=== PATIENT | female | born 1990 | race Caucasian/White ===

== ENCOUNTER → 2018-03-24 11:26 | Outpatient (CLI) | payer OTHER, SELFPAY ==
[2018-03-24 12:03] LABS: Add Manual Diff / Slide Review NO; Basophils Percent Auto 0.6 % (0-2); Eosinophils Percent Auto 0.7 % (2-4); Hematocrit 41.5 % (36-46); Hemoglobin 13.8 g/dL (12.0-16.0); Lymphocytes Percent Auto 37.3 % (25-40); Mean Corpuscular HGB Conc 33.2 % (30-36); Mean Corpuscular Volume 87.2 fL (80-100); Monocytes Percent Auto 6.6 % (3-14); Neutrophils Absolute Auto 3200 /uL (3000-5900); Neutrophils Percent Auto 54.8 % (50-75); Platelet Count 278 X10^3/uL (150-400); Red Blood Cell Count 4.75 X10^6/uL (4.0-5.2); Red Cell Distribution Width 13.5 % (11.6-14.8); White Blood Cell Count 5.8 X10^3/uL (4.5-11.0)
[2018-03-24 12:08] LABS: Appearance Urine UA CLEAR; Bilirubin Urine UA NEGATIVE (NEGATIVE); Color Urine UA YELLOW; Glucose Urine UA NEGATIVE (Normal); Ketones Urine UA NEGATIVE (NEGATIVE); Leukocyte Esterase Urine UA NEGATIVE (NEGATIVE); Nitrite Urine UA NEGATIVE (Negative); Occult Blood Urine UA NEGATIVE (Negative); Protein Urine UA NEGATIVE (Negative); Urobilinogen Urine UA 0.2 E.U./dL (0.2); pH Urine UA 6.5 (4.5-8.0)
[2018-03-24 15:17] LABS: Hepatitis B Surface Antigen NEGATIVE s/c (NEGATIVE)
[2018-03-24 15:35] LABS: HIV 1 and 2 Antibody NEGATIVE (NEGATIVE); Hep C Virus Ab w/Reflex Quant NEGATIVE s/c (NEGATIVE)
[2018-03-25 14:53] LABS: HSV 2 IGG AB 5.99 index (< 0.90); HSV1IGG < 0.90 index (< 0.90)
[2018-03-26 15:42] LABS: RPR Screen Nonreactive (Nonreactive)
== END ==
PROVIDERS: PCP Family Medicine; Visit Provider Family Medicine
DX: Z34.81 Encounter for supervision of other normal pregnancy, first trimester (principal); Z3A.01 Less than 8 weeks gestation of pregnancy
CPT/HCPCS: 36415; 80055; 81003; 86695; 86696; 86703; 86787; 86803; 86850; 86900; 86901; 87086

== ENCOUNTER → 2018-06-10 15:37 | Outpatient (CLI) | payer OTHER, SELFPAY ==
[2018-06-15 15:00] LABS: AFP, Serum 39.5 ng/mL; Calc Gestational Age 18.1; Cigarette Smoker N; Donated Egg NOT GIVEN; Donor Egg Age NOT GIVEN; Estriol, Free 1.44 ng/mL; Inhibin A, Dimeric 150 pg/mL; Maternal Weight 174 lbs; Number of Fetuses 1; Previous Pregnancy Down Syndro NOT GIVEN; hCG, MoM 0.88; hCG, Serum 19.2 IU/mL
== END ==
PROVIDERS: PCP Family Medicine; Visit Provider Family Medicine
DX: Z34.82 Encounter for supervision of other normal pregnancy, second trimester (principal); Z3A.17 17 weeks gestation of pregnancy
CPT/HCPCS: 82105; 82677; 84702; 86336

== ENCOUNTER → 2018-06-24 12:50 | Outpatient (CLI) | payer OTHER, SELFPAY ==
--- NOTE | 2018-06-24 | DI.US.S_ITS ---
PROCEDURE: US OB >= 14 WEEKS FETUS INDICATIONS: ANATOMY SCAN OUTSIDE/PRIOR DATING DATA: Last menstrual period (LMP): 02/03/18. LMP-based estimated date of delivery (SHIRA): 11/10/18. First dating scan (date and location): This study, 06/24/18. Estimated date of delivery (SHIRA) from first dating scan: 11/06/18. TECHNIQUE: Real-time scanning was performed of the fetus, with image documentation and biometric measurements. Endovaginal scanning: Not needed for this study. COMPARISON: None. FINDINGS: General: A single living intrauterine gestation is present. Presentation: Breech at this time. Placenta: Placenta is identified, without previa. Amniotic fluid index: 16.6 cm, normal range is 5-24 cm. heart rate: 139 beats per minute. Maternal cervical canal: 3.8 cm long. Normal lower limit is 2.5 cm. biometrics: Biparietal diameter: 4.8 cm, 20 weeks 3 days Head circumference: 17.8 cm, 20 weeks 2 days Abdominal circumference: 16.7 cm, 21 weeks 5 days Femur length: 3.3 cm, 20 weeks 3 days Estimated gestational age from initial scan: 20 weeks 1 day Composite gestational age from present scan: 20 weeks 5 days Estimated weight and percentile: 392 g, at the upper 89th percentile for current gestational age Measurement variability for biometric dating: +/- 7 days from 14 weeks to 15 weeks 6 days gestation, +/- 10 days from 16 weeks to 21 weeks 6 days gestation, +/- 2 weeks from 22 weeks to 27 weeks 6 days gestation, +/- 3 weeks for 28 weeks gestation or later. weight reference: 4500 g or EFW >90/95% is considered macrosomia or large for gestational age. EFW <10% is small for gestational age. EFW 5% or less is considered intra-uterine growth restriction. Anatomic survey: Neuro: Ventricles are non-dilated at less than 10 mm. Cisterna magna is normal at 3-11 mm. Cerebellum is normal in size and morphology. Nuchal skin fold: Normal at less than 6 mm between 14-21 weeks gestational age. Face: Nose and lips, facial profile are normal. Spine: No evidence for spina bifida. Heart: 4-chambered heart is present, with normal ventricular outflow tracts. Diaphragm: Diaphragm is intact. Stomach: Left-sided stomach is present. Kidneys: No hydronephrosis. Normal is less than 5 mm in 2nd trimester, less than 7 mm in 3rd trimester. Cord: 3-vessel cord has orthotopic insertion. Bladder: Normal in size. Extremities: All 4 extremities identified. IMPRESSION: Current estimated gestational age is 20 weeks 5 days and the gestational age from LMP is 21 weeks 1 day. There has been appropriate interval growth. Current weight is at the upper 89th percentile, however, and followup OB ultrasound in approximately 2 weeks is recommended to establish presence or absence of macrosomia. No anomaly seen. Dictated by: Paulo Mcdowell M.D. on 06/24/2018 at 15:55 Approved by: Paulo Mcdowell M.D. on 06/24/2018 at 15:59
== END ==
PROVIDERS: PCP Family Medicine; Visit Provider Family Medicine
DX: Z36.89 Encounter for other specified antenatal screening (principal); Z3A.20 20 weeks gestation of pregnancy
CPT/HCPCS: 76811

== ENCOUNTER → 2018-07-13 14:44 | Outpatient (CLI) | payer OTHER, SELFPAY ==
--- NOTE | 2018-07-13 14:46 | DI.US.S_ITS ---
PROCEDURE: US OB FOLLOW UP INDICATIONS: GROWTH MONITORING OUTSIDE/PRIOR DATING DATA: Last menstrual period (LMP): 02/03/18. LMP-based estimated date of delivery (SHIRA): 11/10/18. First dating scan (date and location): 06/24/18. Estimated date of delivery (SHIRA) from first dating scan: 11/06/18. TECHNIQUE: Real-time scanning was performed of the fetus, with image documentation and biometric measurements. Endovaginal scanning: Not needed for this study COMPARISON: [facility], OB >= 14 WEEKS FETUS, 06/24/2018, 12:59. [facility], OB <= 14 WEEKS FETUS, 04/08/2018, 15:37. FINDINGS: General: A single living intrauterine gestation is present. Presentation: Breech. Placenta: Placental position is posterior, without previa. Amniotic fluid index: 17.5 cm, normal range is 5-24 cm. heart rate: 152 beats per minute. Maternal cervical canal: 4.6 cm long. Normal lower limit is 2.5 cm. biometrics: Biparietal diameter: 5.6 cm, 23 weeks 1 day Head circumference: 21.1 cm, 23 weeks 1 day Abdominal circumference: 19.3 cm, 24 weeks 0 days Femur length: 3.9 cm, 22 weeks 3 days Estimated gestational age from initial scan: 23 weeks 3 days Composite gestational age from present scan: 23 weeks 1 day Estimated weight and percentile: 581 g, 36th percentile Measurement variability for biometric dating: +/- 7 days from 14 weeks to 15 weeks 6 days gestation, +/- 10 days from 16 weeks to 21 weeks 6 days gestation, +/- 2 weeks from 22 weeks to 27 weeks 6 days gestation, +/- 3 weeks for 28 weeks gestation or later. weight reference: 4500 g or EFW >90/95% is considered macrosomia or large for gestational age. EFW <10% is small for gestational age. EFW 5% or less is considered intra-uterine growth restriction. Other: Not applicable. IMPRESSION: Appropriate interval growth, delivery date is projected to be centered on 11/06/18. Dictated by: Paulo Mcdowell M.D. on 07/13/2018 at 17:17 Approved by: Paulo Mcdowell M.D. on 07/13/2018 at 17:20
== END ==
PROVIDERS: PCP Family Medicine; Visit Provider Family Medicine
DX: Z34.92 Encounter for supervision of normal pregnancy, unspecified, second trimester (principal); Z3A.23 23 weeks gestation of pregnancy
CPT/HCPCS: 76816

== ENCOUNTER → 2018-08-11 15:32 | Outpatient (CLI) | payer OTHER, SELFPAY ==
[2018-08-11 17:32] LABS: Add Manual Diff / Slide Review NO; Basophils Absolute Auto 0 /uL (0-100); Basophils Percent Auto 0.5 % (0-2); Eosinophils Absolute Auto 0 /uL (0-450); Eosinophils Percent Auto 0.6 % (2-4); Hematocrit 36.7 % (36-46); Hemoglobin 12.5 g/dL (12.0-16.0); Lymphocytes Absolute Auto 1300 /uL (1100-4500); Lymphocytes Percent Auto 16.8 % (25-40); Mean Corpuscular Hemoglobin 30.4 PG (26-34); Mean Corpuscular Volume 89.6 fL (80-100); Monocytes Absolute Auto 600 /uL (0-900); Monocytes Percent Auto 7.9 % (3-14); Neutrophils Absolute Auto 5800 /uL (1500-7000); Neutrophils Percent Auto 74.2 % (50-75); Platelet Count 224 X10^3/uL (150-400); Red Cell Distribution Width 13.8 % (11.6-14.8); White Blood Cell Count 7.8 X10^3/uL (4.5-11.0)
[2018-08-11 18:05] LABS: GTT (PREG) 1 Hour PP 50gm Dose 96 mg/dL (76-139)
== END ==
PROVIDERS: PCP Family Medicine; Visit Provider Family Medicine
DX: Z34.82 Encounter for supervision of other normal pregnancy, second trimester (principal)
CPT/HCPCS: 36415; 82950; 85025

== ENCOUNTER 2018-09-22 12:29 | Outpatient (CLI) | payer OTHER, SELFPAY ==
--- NOTE | 2018-09-22 13:03 | PM.OBTRLD ---
Visit Information Visit Information Date of evaluation: 09/22/18 Primary OB Provider: Magalie Owusu On-call OB Provider: Milagros Gross Reason for Evaluation: Yes pre-term labor [facility] Medical History (Updated 09/22/18 @ 13:04 by Milagros Gross MD) Acne (Chronic) Asthma (Resolved) Chicken pox (Resolved) Seizure (Resolved) Surgical History (Updated 04/07/18 @ 20:15 by Danna Kendrick) History of lumpectomy (~2009) Social History Smoking Status: Never smoker Social History Smoking Status: Never smoker Review of Systems Review of Systems Patient c/o low abdominal pain and uterine tightening as well as low back pain. no leakage of fluid. Good movement. No vaginal bleeding. no change in vaginal discharge. All systems reviewed & are unremarkable except as noted in HPI and below Exam Narrative Exam Narrative: Patient's abdomen is soft, nontender. no CVA tenderness. cervix is long, closed, thick and high. Evaluation Evaluation Baseline heart rate: 150 Variability: Moderate (11-25) monitor accelerations: Present monitor decelerations: Absent Contraction Frequency (minutes): 0 Category of Tracing: I Cervical dilation (cm): 0 Cervical effacement (%): 0 station: -4 Diagnosis, Plan/Disposition Final Diagnosis (1) 33 weeks gestation of : Current Visit: No Status: Acute (2) Premature uterine contractions causing threatened premature labor in third trimester: Current Visit: No Status: Acute Plan/Disposition Plan: Patient is reassured she is to drink fluids and rest. If her symptoms worsen she is to return otherwise keep her normal visits. OB Disposition: home
--- NOTE | 2018-09-22 13:06 | P.TNLD_ITS ---
Visit Information Visit Information Date of evaluation: 09/22/18 Primary OB Provider: Magalie Owusu On-call OB Provider: Milagros Gross Reason for Evaluation: Yes pre-term labor [facility] Medical History (Updated 09/22/18 @ 13:04 by Milagros Gross MD) Acne (Chronic) Asthma (Resolved) Chicken pox (Resolved) Seizure (Resolved) Surgical History (Updated 04/07/18 @ 20:15 by Danna Kendrick) History of lumpectomy (~2009) Social History Smoking Status: Never smoker Social History Smoking Status: Never smoker Review of Systems Review of Systems Patient c/o low abdominal pain and uterine tightening as well as low back pain. no leakage of fluid. Good movement. No vaginal bleeding. no change in vaginal discharge. All systems reviewed & are unremarkable except as noted in HPI and below Exam Narrative Exam Narrative: Patient's abdomen is soft, nontender. no CVA tenderness. cervix is long, closed, thick and high. Evaluation Evaluation Baseline heart rate: 150 Variability: Moderate (11-25) monitor accelerations: Present monitor decelerations: Absent Contraction Frequency (minutes): 0 Category of Tracing: I Cervical dilation (cm): 0 Cervical effacement (%): 0 station: -4 Diagnosis, Plan/Disposition Final Diagnosis (1) 33 weeks gestation of : Current Visit: No Status: Acute (2) Premature uterine contractions causing threatened premature labor in third trimester: Current Visit: No Status: Acute Plan/Disposition Plan: Patient is reassured she is to drink fluids and rest. If her symptoms worsen she is to return otherwise keep her normal visits. OB Disposition: home
== END 2018-09-22 13:10 | disposition home or self-care (01) ==
LOC: OB 09-23 13:04
PROVIDERS: PCP Family Medicine; Visit Provider Family Medicine
DX: O47.03 False labor before 37 completed weeks of gestation, third trimester (principal); Z3A.33 33 weeks gestation of pregnancy
CPT/HCPCS: 59025; G0378; G0379

== ENCOUNTER → 2018-10-14 13:49 | Outpatient (CLI) | payer OTHER, SELFPAY ==
[2018-10-15 13:41] LABS: Strep Grp B PCR NEG for Grp B Strep
== END ==
PROVIDERS: PCP Family Medicine; Visit Provider Family Medicine
DX: Z3A.33 33 weeks gestation of pregnancy (principal)
CPT/HCPCS: 87653

== ENCOUNTER 2018-11-15 09:58 | Outpatient (CLI) | payer OTHER, SELFPAY ==
--- NOTE | 2018-11-15 10:40 | PM.OBTRLD ---
Visit Information Visit Information Date of evaluation: 11/15/18 Primary OB Provider: Magalie Owusu Reason for Evaluation: Yes non-stress test non-stress test reason: other (post-dates) [facility] Medical History (Updated 11/15/18 @ 11:07 by Magalie Owusu MD) Acne (Chronic) Asthma (Resolved) Chicken pox (Resolved) Seizure (Resolved) Surgical History (Updated 04/07/18 @ 20:15 by Danna Kendrick) History of lumpectomy (~2009) Social History Smoking Status: Never smoker Social History Smoking Status: Never smoker Evaluation Evaluation Baseline heart rate: 120 Variability: Moderate (11-25) monitor accelerations: Present monitor decelerations: Absent Category of Tracing: I Cervical dilation (cm): 2 Cervical effacement (%): 75 station: -1 Diagnosis, Plan/Disposition Final Diagnosis (1) Post-dates : Current Visit: Yes Status: Acute Plan/Disposition Plan: Membranes stripped today. Reactive NST. IOL scheduled for 11/16 OB Disposition: home
== END 2018-11-15 11:00 | disposition home or self-care (01) ==
LOC: LABOR 10:56 → OB 14:36
PROVIDERS: PCP Family Medicine; Visit Provider Family Medicine
DX: O48.0 Post-term pregnancy (principal); Z3A.40 40 weeks gestation of pregnancy
CPT/HCPCS: 59025; G0378; G0379

== ENCOUNTER 2018-11-16 20:33 | Inpatient (IN) | payer OTHER, SELFPAY ==
[2018-11-17] MEDS: DINOPROSTONE VAG (CERVIDIL) 10 MG VAG (01:06)
[2018-11-17 01:10] VITALS: BP 105/63
[2018-11-17 01:14] LABS: Add Manual Diff / Slide Review NO; Basophils Absolute Auto 100 /uL (0-100); Basophils Percent Auto 0.5 % (0-2); Eosinophils Absolute Auto 100 /uL (0-450); Eosinophils Percent Auto 0.8 % (2-4); Hematocrit 38.5 % (36-46); Hemoglobin 13.2 g/dL (12.0-16.0); Lymphocytes Absolute Auto 3400 /uL (1100-4500); Lymphocytes Percent Auto 34.5 % (25-40); Mean Corpuscular HGB Conc 34.2 % (30-36); Mean Corpuscular Hemoglobin 30.8 PG (26-34); Mean Corpuscular Volume 89.9 fL (80-100); Monocytes Absolute Auto 500 /uL (0-900); Monocytes Percent Auto 5.6 % (3-14); Neutrophils Absolute Auto 5700 /uL (1500-7000); Neutrophils Percent Auto 58.6 % (50-75); Platelet Count 234 X10^3/uL (150-400); Red Blood Cell Count 4.28 X10^6/uL (4.0-5.2); Red Cell Distribution Width 13.9 % (11.6-14.8); White Blood Cell Count 9.7 X10^3/uL (4.5-11.0)
--- NOTE | 2018-11-17 08:17 | PM.OBHP.1 ---
OB HPI Date/Time Date of admission: 11/16/18 Date Patient Seen: 11/17/18 Time Patient Seen: 08:00 History of Present Condition Chief complaint: observation of labor : 2 Para: 1 Estimated Date of Delivery: 11/10/18 Estimated Gestational Age (weeks): 41w0d Narrative: Barbara Cisneros is a 28 year old at 41w0d who presented for post-dates IOL. The pt has been feeling mild intermittent cramping at home, but no regular painful contractions. She denies any LOF or vaginal bleeding. She is feeling baby move regularly. 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 Preadmission Labs Blood type: A (+) positive -: Antibody screen: negative, GBS status: negative, HBsAG: negative, HIV: negative, HSV 1: negative, HSV 2: positive and RPR/VDLR: negative -: Rubella: immune and Varicella: immune HCT: 36.7 HCAB: negative Quad screen: Normal 1 hr GTT: 96 Prior (ies) History: 07/26/15 - at 40w5d, [id number] Evaluation Evaluation Baseline heart rate: 130 Variability: Moderate (11-25) monitor accelerations: Present monitor decelerations: Absent Uterine Contraction Intensity: Mild Category of Tracing: I Cervical dilation (cm): 2 Cervical effacement (%): 80 station: 0 Laboratory results: Laboratory Tests 11/17/18 11/17/18 00:47 00:47 WBC 9.7 RBC 4.28 Hgb 13.2 Hct 38.5 MCV 89.9 MCH 30.8 MCHC 34.2 RDW 13.9 Plt Count 234 Neut % (Auto) 58.6 Lymph % (Auto) 34.5 [place] % (Auto) 5.6 Eos % (Auto) 0.8 L Baso % (Auto) 0.5 Neut # (Auto) 5700 Lymph # (Auto) 3400 [place] # (Auto) 500 Eos # (Auto) 100 Baso # (Auto) 100 Blood Type A Positive Antibody Screen Negative [facility] Medical History (Updated 11/15/18 @ 11:07 by Magalie Owusu MD) Acne (Chronic) Asthma (Resolved) Chicken pox (Resolved) Seizure (Resolved) Surgical History (Updated 04/07/18 @ 20:15 by Danna Kendrick) History of lumpectomy (~2009) Social History Smoking Status: Never smoker Social History Smoking Status: Never smoker Meds Home Medications Medication Instructions Recorded Confirmed Type cetirizine 10 mg tablet 10 mg PO DAILY 08/19/18 11/17/18 History 1 tab PO DAILY 08/19/18 11/17/18 History vitamin,calcium,mqzgmyup-irgx-imexj acid tablet acyclovir 400 mg tablet 400 mg PO TID #120 tab 10/14/18 11/17/18 Rx Allergies Allergy/AdvReac Type Severity Reaction Status Date / Time dexamethasone Allergy Mild RAPID HR, Verified 11/17/18 03:56 RASH, NAUSEA, DIZZINESS pertussis vaccine,adsorbed AdvReac Unknown CHILDHOOD Verified 11/17/18 03:56 Exam Vital Signs (past 8 hours): - 11/17/18 01:10 Blood Pressure 105/63 Narrative Exam Narrative: Gen: NAD, laying comfortably in bed, appears well CV: RRR, no murmurs Resp: clear to auscultation bilaterally Abd: soft, nontender, nondistended, gravid Ext: trace edema Objective Labs Result Diagrams: 11/17/18 00:47 Labs: Laboratory Results - last 24 hr 11/17/18 11/17/18 00:47 00:47 WBC 9.7 RBC 4.28 Hgb 13.2 Hct 38.5 MCV 89.9 MCH 30.8 MCHC 34.2 RDW 13.9 Plt Count 234 Neut % (Auto) 58.6 Lymph % (Auto) 34.5 [place] % (Auto) 5.6 Eos % (Auto) 0.8 L Baso % (Auto) 0.5 Neut # (Auto) 5700 Lymph # (Auto) 3400 [place] # (Auto) 500 Eos # (Auto) 100 Baso # (Auto) 100 Blood Type A Positive Antibody Screen Negative Assessment and Plan Assessment and Plan Assessment and Plan narrative: 28yo at 41w0d who presented for post-dates IOL. No complications with . HSV positive, on acyclovir prophylaxis. Received cervidil overnight without any significant increase in contraction intensity after initial 2-3 hours, more tapering off. Bishops score favorable at 9. GBS negative, Rh positive. - Expectant management, anticipate - GBS negative, no antibiotic prophylaxis indicated - FHT reassuring - Epidural for pain control when pt desires - Cervidil removed, will start pitocin due to favorable bishops score and no significant contractions on cervidil. Titrate as tolerated. - Plan for AROM once pt having regular painful contractions
--- NOTE | 2018-11-17 08:20 | P.HPOB_ITS ---
OB HPI Date/Time Date of admission: 11/16/18 Date Patient Seen: 11/17/18 Time Patient Seen: 08:00 History of Present Condition Chief complaint: observation of labor : 2 Para: 1 Estimated Date of Delivery: 11/10/18 Estimated Gestational Age (weeks): 41w0d Narrative: Barbara Cisneros is a 28 year old at 41w0d who presented for post-dates IOL. The pt has been feeling mild intermittent cramping at home, but no regular painful contractions. She denies any LOF or vaginal bleeding. She is feeling baby move regularly. 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 Preadmission Labs Blood type: A (+) positive -: Antibody screen: negative, GBS status: negative, HBsAG: negative, HIV: negative, HSV 1: negative, HSV 2: positive and RPR/VDLR: negative -: Rubella: immune and Varicella: immune HCT: 36.7 HCAB: negative Quad screen: Normal 1 hr GTT: 96 Prior (ies) History: 07/26/15 - at 40w5d, [id number] Evaluation Evaluation Baseline heart rate: 130 Variability: Moderate (11-25) monitor accelerations: Present monitor decelerations: Absent Uterine Contraction Intensity: Mild Category of Tracing: I Cervical dilation (cm): 2 Cervical effacement (%): 80 station: 0 Laboratory results: Laboratory Tests 11/17/18 11/17/18 00:47 00:47 WBC 9.7 RBC 4.28 Hgb 13.2 Hct 38.5 MCV 89.9 MCH 30.8 MCHC 34.2 RDW 13.9 Plt Count 234 Neut % (Auto) 58.6 Lymph % (Auto) 34.5 [place] % (Auto) 5.6 Eos % (Auto) 0.8 L Baso % (Auto) 0.5 Neut # (Auto) 5700 Lymph # (Auto) 3400 [place] # (Auto) 500 Eos # (Auto) 100 Baso # (Auto) 100 Blood Type A Positive Antibody Screen Negative [facility] Medical History (Updated 11/15/18 @ 11:07 by Magalie Owusu MD) Acne (Chronic) Asthma (Resolved) Chicken pox (Resolved) Seizure (Resolved) Surgical History (Updated 04/07/18 @ 20:15 by Danna Kendrick) History of lumpectomy (~2009) Social History Smoking Status: Never smoker Social History Smoking Status: Never smoker Meds Home Medications Medication Instructions Recorded Confirmed Type cetirizine 10 mg tablet 10 mg PO DAILY 08/19/18 11/17/18 History 1 tab PO DAILY 08/19/18 11/17/18 History vitamin,calcium,mbmaqvef-kkxe-xpgwq acid tablet acyclovir 400 mg tablet 400 mg PO TID #120 tab 10/14/18 11/17/18 Rx Allergies Allergy/AdvReac Type Severity Reaction Status Date / Time dexamethasone Allergy Mild RAPID HR, Verified 11/17/18 03:56 RASH, NAUSEA, DIZZINESS pertussis vaccine,adsorbed AdvReac Unknown CHILDHOOD Verified 11/17/18 03:56 Exam Vital Signs (past 8 hours): - 11/17/18 01:10 Blood Pressure 105/63 Narrative Exam Narrative: Gen: NAD, laying comfortably in bed, appears well CV: RRR, no murmurs Resp: clear to auscultation bilaterally Abd: soft, nontender, nondistended, gravid Ext: trace edema Objective Labs Result Diagrams: 11/17/18 00:47 Labs: Laboratory Results - last 24 hr 11/17/18 11/17/18 00:47 00:47 WBC 9.7 RBC 4.28 Hgb 13.2 Hct 38.5 MCV 89.9 MCH 30.8 MCHC 34.2 RDW 13.9 Plt Count 234 Neut % (Auto) 58.6 Lymph % (Auto) 34.5 [place] % (Auto) 5.6 Eos % (Auto) 0.8 L Baso % (Auto) 0.5 Neut # (Auto) 5700 Lymph # (Auto) 3400 [place] # (Auto) 500 Eos # (Auto) 100 Baso # (Auto) 100 Blood Type A Positive Antibody Screen Negative Assessment and Plan Assessment and Plan Assessment and Plan narrative: 28yo at 41w0d who presented for post-dates IOL. No complications with . HSV positive, on acyclovir prophylaxis. Received cervidil overnight without any significant increase in contraction intensity after initial 2-3 hours, more tapering off. Bishops score favorable at 9. GBS negative, Rh positive. - Expectant management, anticipate - GBS negative, no antibiotic prophylaxis indicated - FHT reassuring - Epidural for pain control when pt desires - Cervidil removed, will start pitocin due to favorable bishops score and no significant contractions on cervidil. Titrate as tolerated. - Plan for AROM once pt having regular painful contractions
[2018-11-17] MEDS: LACTATED RINGERS 1,000 ML 100 ML IV ×2 (08:57→12:09)
[2018-11-17] MEDS: OXYTOCIN PREMIX 30 UNIT/500 ML PLAST..BAG IV (09:03)
--- NOTE | 2018-11-17 12:34 | PM.OBPNLAB ---
Date/Time Date Patient Seen: 11/17/18 Time Patient Seen: 12:00 Pain Control Pain control: tolerating well and epidural Pelvic Exam Dilation (cm): 3 Effacement (%): 80 station: 0 Amniotic membrane status: Ruptured Comments: After informed consent, AROM was performed with production of clear fluid. Contractions Contractions on admission: none Monitor mode: External Pitocin rate (mU/min): 12 Contraction frequency (min): 3 Contraction duration (min): 1 Contraction pattern: Regular Contraction intensity: Strong/Firm Status status: Category l Heart Rate Baseline: 135 Monitor Accelerations: Present Monitor Decelerations: Absent Monitor Variability: Moderate Assessment and Plan Comments: 28yo at 41w0d who presented for post-dates IOL. No complications with . HSV positive, on acyclovir prophylaxis. Received cervidil overnight without any significant increase in contraction intensity after initial 2-3 hours, more tapering off. Started on pitocin. AROM performed with production of clear fluid. GBS negative, Rh positive. - Expectant management, anticipate - GBS negative, no antibiotic prophylaxis indicated - FHT reassuring - Epidural for pain control in place - Continue pitocin, titrate as tolerated
[2018-11-17] MEDS: ONDANSETRON 4 MG/2 ML INJ IV (12:40)
--- NOTE | 2018-11-17 17:42 | PM.OBPRVD ---
Delivery date: 11/17/18 Intrapartal events: None Cervical ripening method: per Cervidil protocol Induction method: per pitocin protocol Delivery augmentation: rupture of membranes Delivery monitor: external FHT Route of delivery: Episiotomy description: None L&D Laceration Description: None Estimated blood loss (mL): 250 Anesthesia type: Epidural Narrative: PROCEDURE: at 41w0d presented for IOL for post-dates and was admitted to Labor and Delivery. The patient progressed through the 1st stage over 3 hours. Pain was controlled with an epidural. She received cervidil and then pitocin. AROM was performed with production of clear fluid, which remained clear until delivery. The patient progressed through the 2nd stage over 1 hour 40 minutes. During the second stage there were recurrent variable decelerations, with good recovery between with moderate variability. The pt delivered a viable male with APGARs 8/9 at 17:07 via . was thick meconium present at delivery. The baby cried spontaneously immediately after delivery. The cord was clamped and cut after it stopped pulsating. The perineum and vagina were inspected with no lacerations. The cord was noted to have a true knot. PREPROCEDURE DIAGNOSIS: Intrauterine at 41w0d Hx of HSV GBS negative RH positive POSTPROCEDURE DIAGNOSIS: Intrauterine at 41w0d, delivered Same as preprocedure ROM APPEARANCE: Clear, then meconium at delivery BABY A WEIGHT: [id number] BABY A NUCHAL CORD: None, true knot present BABY A CORD GASES OBTAINED: No PLACENTA DELIVERY TIME: 17:13 PLACENTA APPEARANCE: Intact Baby 1: Infant gender: Male Presentation: vertex position: Right Occiput Anterior Placenta delivery description: Spontaneous cord vessel description: 3 Vessels score (1 min): 8 score (5 min): 9 Plan for aftercare: Normal care
[2018-11-17] MEDS: IBUPROFEN 600 MG TABLET PO (18:03)
[2018-11-18] MEDS: IBUPROFEN 600 MG TABLET PO ×3 (00:12→12:11)
[2018-11-18] MEDS: DERMOPLAST SPRAY 20% 60 ML 1 SPRAY TOP (00:12)
--- NOTE | 2018-11-18 10:24 | PM.OBDS.1 ---
Discharge Providers Date of admission: 11/16/18 20:33 Discharge Date: 11/18/18 Primary care physician: Magalie Owusu MD Consults: 11/17/18 17:57 Consult to Global Transportation Manager Routine Comment: Discharge provider: Magalie Owusu MD Summary Date Patient Seen: 11/18/18 Time Patient Seen: 08:00 Procedures: Spontaneous vaginal delivery Hospital Course: The patient presented for post-dates induction of labor. She received Cervidil and Pitocin for induction. She had an epidural for pain control. She delivered a viable baby boy at 5:07 p.m. on 11/17/18. There were no lacerations. The patient tolerated delivery well. , there were no complications. At the time of discharge, she was voiding, ambulating, and passing flatus without difficulty. Her lochia was decreasing appropriately. Her pain was adequately controlled. She is breast-feeding with good latch. She will follow up in clinic in 6 weeks for check. Peripartum Data Infant Delivery Method: Natural Vaginal Laceration description: None Episiotomy description: None Procedures: Spontaneous vaginal delivery complications: none 1: Gender: Male Disposition of : home Discharge Diagnosis (1) Spontaneous vaginal delivery: Status: Resolved Status at Discharge Cognitive/behavioral status at discharge: oriented Functional status at discharge: independent ambulation Overall status at discharge: patient is progressing back to baseline Time Spent with Patient Total time spent providing and/or coordinating discharge services: Greater than 30 minutes Objective Labs Result Diagrams: 11/17/18 00:47 Exam Narrative Exam Narrative: General: No acute distress, sitting comfortably in bed, appears well CV: Regular rate and rhythm, no murmurs Respiratory: Clear to auscultation bilaterally Abdomen: Soft, nontender, nondistended, fundus firm below the umbilicus Extremities: Trace edema Discharge Plan Discharge Plan Patient Disposition: Home Discharge Med Rec/Prescriptions Prescriptions: New acetaminophen 325 mg Tablet 650 mg PO Q6HR PRN (Reason: Pain, Mild (1-3)) Qty: 30 RF: 0 Dermoplast (with menthol) 20-0.5 % Aerosol 1 spray topical Q1HR PRN (Reason: perineal pain) Qty: 15 RF: 0 ibuprofen 600 mg Tablet 600 mg PO Q6HR PRN (Reason: Pain, Mild (1-3)) Qty: 30 RF: 0 docusate sodium 250 mg Capsule 250 mg PO DAILY Qty: 30 RF: 0 Aui-I-Wgshhw Cream 1 applic topical PRN PRN (Reason: Tenderness) Qty: 15 RF: 0 Continued prenat.vits,ton,wni-jmql-dbyyg tablet 1 tab PO DAILY RF: 0 cetirizine [Zyrtec] 10 mg tablet 10 mg PO DAILY RF: 0 Discontinued acyclovir 400 mg tablet 400 mg PO TID Qty: 120 RF: 0 Follow up/Referrals: Magalie Owusu MD [Primary Care Provider] - 12/29/18 11:00 am (You will be meeting with Dr Gutierrez for this appointment as Dr Owusu will be on Maternity leave. Please arrive 15 minutes prior to your appointment start time. ) Provider Discharge Instructions Diet: Diet as Tolerated and Regular Visit Report/Discharge Packet Instructions: DI for Labor and Delivery, Vaginal Stand Alone Forms: Discharge: Care Visit Report Forms: Stroke Signs & Symptoms Discharge Data Primary Care Provider: Magalie Owusu Attending Provider: Magalie Owusu Admit Date/Time: 11/16/18 20:33
[2018-11-18] MEDS: PRENATAL VIT,CALC/IRON/FOLIC 1 TABLET 1 TAB PO (10:28)
[2018-11-18] MEDS: DOCUSATE 250 MG CAPSULE PO (10:28)
[2018-11-18 16:09] VITALS: BP 95/51; PULSE 68; RESP 16; TEMP 36.3
== END 2018-11-18 18:43 | disposition home or self-care (01) | DRG 806 ==
PROVIDERS: Admitting Provider Family Medicine; PCP Family Medicine; Visit Provider Family Medicine
DX: O48.0 Post-term pregnancy (principal); O98.32 Other infections with a predominantly sexual mode of transmission complicating childbirth; Z37.0 Single live birth; A60.00 Herpesviral infection of urogenital system, unspecified; Z3A.41 41 weeks gestation of pregnancy; O77.0 Labor and delivery complicated by meconium in amniotic fluid
CPT/HCPCS: 01967; 59050; 59200; 59400; 85025; 86850; 86900; 86901; G0379; J2405; J2590

== ENCOUNTER → 2021-05-03 11:38 | Outpatient (CLI) | payer OTHER, SELFPAY ==
[2021-05-03 11:56] LABS: COVID19 -Nasal RAPID POSITIVE (Negative)
== END ==
PROVIDERS: PCP Family Medicine; Visit Provider Nurse Practitioner Family
DX: R43.0 Anosmia (principal); R52 Pain, unspecified; R09.81 Nasal congestion
CPT/HCPCS: 87635